=== PATIENT | male | born 1960 | race Caucasian/White ===

== ENCOUNTER → 2022-02-20 14:50 | Outpatient (CLI) | payer OTHER, SELFPAY ==
--- NOTE | 2022-02-20 14:56 | DI.MRI.S_ITS ---
PROCEDURE: MR ELBOW LT W CON INDICATIONS: BICEPS RUPTURE, DISTAL,LEFT TECHNIQUE: Noncontrast coronal proton density fast spin echo and T2 fast spin echo with fat saturation, axial and sagittal T1 spin echo and T2 fast spin echo with fat saturation through the elbow. COMPARISON: None. FINDINGS: Image quality: Excellent. Lateral structures: The lateral ulnar collateral ligament and radial collateral ligament both appear intact. The overlying common extensor tendon also appears normal. Medial structures: The ulnar collateral ligament appears intact. The overlying common flexor tendon appears normal. The ulnar nerve appears normal in size and signal within the cubital tunnel. Anterior structures: There is full-thickness rupture of distal biceps tendon at its insertion on proximal radius with up to 5.8 cm proximal retraction of torn tendon fibers to the level of distal humeral shaft. Large amount of surrounding fluid and soft tissue edema is seen adjacent to torn bicipital tendon. Distal brachialis tendon is intact. The median and radial neurovascular bundles appear normal; no focal muscle atrophy to suggest nerve impingement. Posterior structures: The conjoint triceps tendon from the long and lateral heads appears intact. The medial head of the triceps tendon also appears normal, with direct muscle insertion onto the olecranon. No olecranon bursal fluid. Bone and cartilage: No bone marrow contusions or fractures. No osteochondral injuries. IMPRESSION: 1. Full-thickness rupture of distal biceps tendon at its proximal radial insertion with up to 5.8 cm proximal retraction of torn tendon fibers and large amount of surrounding soft tissue edema and fluid. Distal brachialis tendon is intact. 2. No marrow edema. No fracture or dislocation. No significant joint effusion. 3. Distal triceps tendon is intact. Medial and lateral ankle tendons and ligaments are intact. Dictated by: Ambrosio Hare M.D. on 02/20/2022 at 16:24 Approved by: Ambrosio Hare M.D. on 02/20/2022 at 16:27
== END ==
PROVIDERS: PCP Internal Medicine; Referring Provider Orthopaedic Surgery; Visit Provider Orthopaedic Surgery
DX: S46.212A Strain of muscle, fascia and tendon of other parts of biceps, left arm, initial encounter (principal); X58.XXXA Exposure to other specified factors, initial encounter
CPT/HCPCS: 73221

== ENCOUNTER → 2025-03-15 07:37 | Outpatient (CLI) | payer OTHER, SELFPAY ==
--- NOTE | 2025-03-15 07:40 | DI.NM.S_ITS ---
PROCEDURE: NM TREVOR PERF SPECT R&S PHARM Rest and pharmacological stress myocardial perfusion SPECT with gated imaging and ejection fraction RADIOPHARMACEUTICAL: 26 mCi Tc-99m tetrafosmin IV at rest and 26.9 mCi Tc-99m tetrafosmin IV at peak effect of pharmacological stress. [id number] was performed. INDICATIONS: chest pain; hypertension PQRS ATTESTATIONS: Measure 322 - Is this imaging test primarily performed on a low-risk surgery patient for preoperative evaluation within 30 days preceding their low-risk non-cardiac surgery? Low-risk surgery is defined as cardiac or myocardial infarction less than 1%, including (but not limited to) endoscopic procedures, superficial procedures, cataract surgery, and excisional breast surgery: Answer: No Measure 323 - Is this imaging test performed primarily for the monitoring of an asymptomatic patient who had percutaneous coronary intervention on the visit date or within 2 years of the visit date? Answer: No Measure 324 - Is this imaging test performed primarily for the initial detection and risk assessment on an asymptomatic, low coronary heart disease patient? Low CHD risk definition = clinicians should consider the maximum number of available patient factors used to estimate risk based on [place] (ATP III criteria), typically age, gender, diabetes, smoking status, and use of blood pressure medication, and integrate age appropriate estimates for missing elements, such as LDL or standard blood pressure. Answer: No TECHNIQUE: Radiopharmaceutical was injected at peak stress test, and also at rest. SPECT images were obtained. SPECT myocardial perfusion images were displayed in short axis, horizontal long axis, and vertical long axis views. Gated images were reviewed using [employer] software. COMPARISON: None. CARDIAC STRESS: A pharmacologic stress test was performed under the supervision of an attending staff, using an infusion of 0.4 mg of Lexiscan. Hemodynamic data: There is normal blood pressure and heart rate response to pharmacologic stress. Symptoms: The patient denied anginal chest pain. Aminophylline: None EKG: No diagnostic changes of ischemia; no ectopy. FINDINGS: Raw data: There is good myocardial uptake of radiotracer. No significant motion artifacts. Flpt-bc-korhy ratio is 0.25 (normal is less than 0.38 for tetrafosmin tracer). Left ventricle function: Gated images demonstrate normal left ventricular wall thickening. No segmental wall motion abnormalities. No transient ischemic dilation; TID is 0.98 (normal less than 1.3). Left ventricle resting end diastolic volume is 111 mL. Left ventricle stress ejection fraction is 76%; normal range is above 45%. Myocardial perfusion: Rest images had moderate hypoperfusion in the inferior segment. Stress images had no perfusion defect. No prone images obtained. No other perfusion defects appreciated. IMPRESSION: Negative Lexiscan myocardial perfusion scan for ischemia and infarction. Dictated by: Skip Hare M.D. on 03/16/2025 at 16:19 Approved by: Skip Hare M.D. on 03/16/2025 at 16:22
== END ==
PROVIDERS: PCP Internal Medicine; Referring Provider Internal Medicine; Visit Provider Internal Medicine Cardiovascular Disease
DX: R07.9 Chest pain, unspecified (principal); I10 Essential (primary) hypertension
CPT/HCPCS: 78452; 93017; A9502; J2785